=== PATIENT | male | born 1965 | race Caucasian/White ===

== ENCOUNTER 2019-06-15 18:34 | Emergency (ER) | payer BC, OTHER ==
[~2019-06-15] VITALS: Ht 177.8 cm; Wt 100.9 kg
[2019-06-15 19:16] LABS: BASOPHILS # (AUTO) 0.01 x10^3/uL (0-0.1); BASOPHILS % (AUTO) 0 % (0-1); EOSINOPHILS # (AUTO) 0.03 x10^3/uL (0-0.4); EOSINOPHILS % (AUTO) 0 % (1-7); LYMPHOCYTES # (AUTO) 1.33 x10^3/uL (1-3.4); LYMPHOCYTES % (AUTO) 11 % (22-44); MD NO; MEAN CORPUSCULAR HEMOGLOBIN 33.8 pg (27.5-34.5); MEAN CORPUSCULAR HGB CONC 33.6 g/dL (33.2-36.2); MEAN CORPUSCULAR VOLUME 100.8 fL (81-97); MEAN PLATELET VOLUME 8.3 fL (7.4-10.4); MONOCYTES # (AUTO) 0.46 x10^3/uL (0.2-0.8); MONOCYTES % (AUTO) 4 % (2-9); NEUTROPHILS # (AUTO) 10.82 x10^3/uL (1.8-6.8); NEUTROPHILS % (AUTO) 86 % (42-75); PLATELET COUNT 181 x10^3/uL (130-400); RED BLOOD COUNT 4.72 x10^6/uL (4.38-5.82); RED CELL DISTRIBUTION WIDTH 13.1 % (9.4-14.8)
[2019-06-15 19:16] LABS: MICROSCOPIC AUTO
[2019-06-15 19:25] LABS: CULTURE INDICATED? NO
[2019-06-15 19:30] LABS: ALANINE AMINOTRANSFERASE 66 U/L (12-78); ALBUMIN 3.8 g/dL (3.4-5.0); ANION GAP 9 mmol/L (5-15); CALCIUM 8.8 mg/dL (8.5-10.1); CHLORIDE 108 mmol/L (98-107); CREATININE 1.29 mg/dL (0.7-1.3)
[2019-06-15 19:32] LABS: ALKALINE PHOSPHATASE 91 U/L (45-117); BILIRUBIN,TOTAL 0.8 mg/dL (0.2-1.0); TOTAL PROTEIN 7.6 g/dL (6.4-8.2)
--- NOTE | 2019-06-15 19:34 | NUR ---
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
--- NOTE | 2019-06-15 19:48 | NUR ---
ASSUMED CARE OF PATIENT. PATIENT REPORTS RIGHT SIDED LOWER ABD PAIN WITH VOMTING. VS STABLE. FAMILY AT BEDSIDE. CALL LIGHT IN PLACE. WILL CONTINUE TO MONITOR.
[2019-06-15] MEDS ORDERED: MORPHINE SULFATE 4 MG/ML, 1ML ONE ×2 (20:26→22:19)
[2019-06-15] MEDS ORDERED: ONDANSETRON 2MG/ML, 2ML ONE (20:26)
[2019-06-15] MEDS ORDERED: ONDANSETRON 2MG/ML, 2ML IVPush ONE (20:30)
[2019-06-15] MEDS ORDERED: KETOROLAC 30 MG/1 ML ONE (20:38)
--- NOTE | 2019-06-15 20:40 | NUR ---
DR MELÉNDEZ WANTS MORPHINE HELD AND 30 MG IV OF TORADOL GIVEN.
--- NOTE | 2019-06-15 20:59 | NUR ---
PT REPORTS PAIN RELIEF AFTER TORADOL. DR MELÉNDEZ AWARE.
[2019-06-15] MEDS ORDERED: KETOROLAC 30 MG/1 ML IVPush ONE (21:00)
[2019-06-15] MEDS: MORPHINE SULFATE 4 MG/ML, 1ML IVPush PRN ×2 (21:43→22:21)
--- NOTE | 2019-06-15 21:47 | NUR ---
PHENERGAN HELD PER DR MELÉNDEZ. PT HAS NO NAUSEA. VS STABLE. FAMILY AT BEDSIDE. WILL CONTINUE TO MONITOR.
--- NOTE | 2019-06-15 21:56 | NUR ---
PT RESTING IN ROOM. NO ACUTE DISTRESS NOTED. VS STABLE. CALL LIGHT IN PLACE. WILL CONTINUE TO MONITOR.
[2019-06-15] MEDS ORDERED: PROMETHAZINE 25 MG/ML, 1ML IM ONE (22:00)
--- NOTE | 2019-06-15 22:23 | NUR ---
PT REPORTS INCREASED RIGHT LOWER ABD PAIN 10/10. MORPHINE GIVEN PER DR MELÉNDEZ. VS STABLE. FAMILY AT BEDSIDE. WILL CONTINUE TO MONITOR.
[2019-06-15] MEDS ORDERED: HYDROcodone/APAP 5/325 TABLET ONE (23:17)
[2019-06-15 23:19] VITALS: BP 114/72
--- NOTE | 2019-06-15 23:29 | NUR ---
DR MELÉNDEZ HAS UPDATED PATIENT. PT READY FOR DC
[2019-06-15] MEDS ORDERED: HYDROcodone/APAP 5/325 TABLET PO ONE (23:30)
== END 2019-06-15 23:49 | disposition home or self-care (01) ==
LOC: ED 23:37
DX: N13.2 Hydronephrosis with renal and ureteral calculous obstruction (principal)
CPT/HCPCS: 36415; 74176; 80053; 81001; 85025; 96374; 96375; 99284; J1885; J2270; J2405